=== PATIENT | female | born 1970 | race Caucasian/White ===

== ENCOUNTER 2020-07-30 12:05 | Emergency (ER) | payer BC ==
[2020-07-30] MEDS ORDERED: Sodium Chloride 0.9% 10 ML Syringe FLUSH PRN (13:10)
[2020-07-30] MEDS ORDERED: HYDROmorphone 0.5 MG/0.5 ML Syringe IVPUSH ONE ×2 (13:10→14:04)
[2020-07-30] MEDS ORDERED: Ondansetron 4 MG/2 ML SDV IVPUSH ONE (13:10)
--- NOTE | 2020-07-30 13:30 | EDM.PDOC ---
ED HPI GENERAL MEDICAL PROBLEM - General Chief Complaint: Eye Problems Stated Complaint: LT EYE PAIN Time Seen by Provider: 07/30/20 12:53 Source of Information: Reports: Patient, RN Notes Reviewed - History of Present Illness INITIAL COMMENTS - FREE TEXT/NARRATIVE: 49 yr old female with quite severe L eye discomfort and L sided Torres and facial discomfort. She did have some L eye discomfort 2 days ago but that went away, yesterday was good with no pain or other unusual sx. The discomfort started this past morning and has been getting progressively worse. There has been some nausea, no vomiting. She feels like her vision has been also getting progressively worse today. She also has light sensitivity. She does wear contacts but has not been wearing them much the last few days. Hx of "losing vision in the same eye about 10 yrs ago", it did come back to normal over a period of weeks, "etiology of that unclear". Has not otherwise been ill in any way. 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 Denies: Sinus Problem, Thr oat Pain, Vertigo Respiratory: Denies: Shortness of Breath, Cough Cardiovascular: Denies: Chest Pain GI/Abdominal: Reports: Nausea. Denies: Abdominal Pain, Diarrhea, Vomiting Musculoskeletal: Denies: Neck Pain, Shoulder Pain, Arm Pain Skin: Reports: No Symptoms. Denies: Rash Neurological: Reports: Headache. Denies: Dizziness, Numbness, Tingling, Trouble Speaking, Difficulty Walking, Weakness ED EXAM GENERAL W FULL EYE - Physical Exam Exam: See Below Exam Limited By: No Limitations General Appearance: Alert, Moderate Distress Conjunctiva & Sclera: Left: Injected (mild) Cornea Exam: Bilateral: Normal Appearance Extraocular Movements: Bilateral: Intact Pupillary Size: Bilateral: 3 mm, 4 mm Pupillary Reaction: Right: Brisk, Left: Sluggish Throat/Mouth: Normal Inspection Head: Atraumatic. No: Facial Swelling Neck: Supple Respiratory/Chest: No Respiratory Distress, Lungs Clear, Normal Breath Sounds Cardiovascular: Regular Rate, Rhythm GI/Abdominal: Non-Tender Back Exam: No: CVA Tenderness (L), CVA Tenderness (R) Extremities: Normal Inspection, Normal Range of Motion Neurological: Alert, Oriented, No Motor/Sensory Deficits Skin Exam: Warm, Dry, Normal Color, No Rash Course - Vital Signs Last Recorded V/S: Last Vital Signs Temp 98.7 F 07/30/20 12:25 Pulse 87 07/30/20 12:25 Resp 14 07/30/20 12:25 BP 161/90 H 07/30/20 12:25 Pulse Ox 97 07/30/20 12:25 - Orders/Labs/Meds Orders: Active Orders 24 hr Category Date Time Status Peripheral IV Insertion Adult [OM.PC] Stat Oth 07/30/20 13:09 Ordered Meds: Medications Discontinued Medications Generic Name Dose Route Start Last Admin Trade Name Malou PRN Reason Stop Dose Admin Hydromorphone HCl 0.5 mg 07/30/20 13:10 07/30/20 13:29 Dilaudid IVPUSH 07/30/20 13:11 0.5 mg ONETIME ONE Administration Hydromorphone HCl 0.5 mg 07/30/20 14:04 07/30/20 14:12 Dilaudid IVPUSH 07/30/20 14:05 0.5 mg ONETIME ONE Administration Ketorolac Tromethamine 30 mg 07/30/20 15:45 07/30/20 15:41 Toradol IVPUSH 30 mg ONETIME ERICA Administration Lorazepam 0.5 mg 07/30/20 15:31 07/30/20 15:41 Ativan IVPUSH 07/30/20 15:32 0.5 mg ONETIME ONE Administration Metoclopramide HCl 5 mg 07/30/20 15:31 07/30/20 15:41 Reglan IVPUSH 07/30/20 15:32 5 mg ONETIME ONE Administration Ondansetron HCl 4 mg 07/30/20 13:10 07/30/20 13:28 Zofran IVPUSH 07/30/20 13:11 4 mg ONETIME ONE Administration Sodium Chloride 10 ml 07/30/20 13:10 07/30/20 13:29 Saline Flush FLUSH 10 ml ASDIRECTED PRN Administration Keep Vein Open - Re-Assessments/Exams Free Text/Narrative Re-Assessment/Exam: 07/30/20 17:30 CT of head and orbits show no acute findings. She has had relief of discomfort from IV dilaudid 0.5 mg IV times 2, zofran and reglan given IV for nausea. Ativan 0.5 mg IV given and that also seemed to help her quite a bit. She had minimal if any relief from topical properacaine. It has been hard to get even a brief look at her cornea and sclera due to severe light sensitivity so have not attempted slit lamp exam. Her sx are strongly suggestive and most compatable with iritis. Will start her prednisolone acetate eye drops. She lives in [place], she is on her way there from [place]. Discharge instr. as documented. Departure - Departure Time of Disposition: 15:21 Disposition: Home, Self-Care 01 Condition: Fair Clinical Impression: Iritis - Discharge Information Prescriptions: Ondansetron [Zofran ODT] 4 mg PO Q6H PRN #7 tab.dis PRN Reason: Nausea/Vomiting Referrals: PCP,Not In Area [Primary Care Provider] - Forms: ED Department Discharge Additional Instructions: prednisolone acetate eye drops, 1 drop L eye q 3 hr while awake. You may alternate tylenol and ibuprofen if needed for eye discomfort or headache. If you take ibuprofen be sure to take that with food. Zofran if needed for nausea or vomiting. See your Visual Merchandising Coordinator tomorrow or Opthamologist. Sepsis Event Note (ED) - Evaluation Sepsis Screening Result: No Definite Risk - Focused Exam Vital Signs: Vital Signs Temp Pulse Resp BP Pulse Ox 07/30/20 12:25 98.7 F 87 14 161/90 H 97 - My Orders Last 24 Hours: My Active Orders 07/30/20 13:09 Peripheral IV Insertion Adult [OM.PC] Stat - Assessment/Plan Last 24 Hours: My Active Orders 07/30/20 13:09 Peripheral IV Insertion Adult [OM.PC] Stat
--- NOTE | 2020-07-30 14:58 | CT ---
Head CT Technique: Multiple axial sections through the brain were obtained. Intravenous contrast was not utilized. Findings: Ventricles along with basal cisterns and sulci over the convexities are within normal limits. No abnormal parenchymal densities are seen. No evidence of intracranial hemorrhage. No midline shift or mass-effect is seen. Bone window settings were reviewed. No acute abnormality is appreciated within the mastoid or paranasal sinuses. Visualized calvarium shows no discrete abnormality Impression: 1. Nothing acute is appreciated on noncontrast head CT. Diagnostic code #1
--- NOTE | 2020-07-30 14:58 | CT ---
CT orbits Technique: Multiple axial sections through both orbits were obtained. Coronal and sagital images were also obtained. Comparison: No previous study is available. Findings: Right and left orbits are symmetric in size. Paranasal sinuses that are seen appear clear. No acute bony abnormality is appreciated. Minimal nasal septal deviation is seen. No retrobulbar abnormality is appreciated. Impression: 1. Mild nasal septal deviation. 2. No additional abnormality is appreciated on CT study of the orbits. Diagnostic code #2
[2020-07-30] MEDS ORDERED: Metoclopramide 10 MG/2 ML SDV IVPUSH ONE (15:31)
[2020-07-30] MEDS ORDERED: LORazepam 2 MG/ML SDV IVPUSH ONE (15:31)
[2020-07-30] MEDS ORDERED: Ketorolac 30 MG/ML SDV IVPUSH SCH (15:45)
== END 2020-07-30 16:39 | disposition home or self-care (01) ==
LOC: JD.ED 12:05
DX: H20.9 Unspecified iridocyclitis (principal); R56.9 Unspecified convulsions; Z79.899 Other long term (current) drug therapy
CPT/HCPCS: 70450; 70486; 96374; 96375; 96376; 99283; J1170; J1885; J2060; J2405; J2765; 99284